=== PATIENT | female | born 1990 | race Caucasian/White ===

== ENCOUNTER 2016-11-27 17:07 | Emergency (ER) | payer OTHER ==
[2016-11-27 18:39] VITALS: TEMP 98.2; O2SAT 95
--- NOTE | 2016-11-27 18:59 | ED.PDOC ---
History of Present Illness - General Chief Complaint: Bite: Animal/Insect/Human Stated Complaint: Insect bite on R thigh Time Seen by Provider: 11/27/16 18:52 Source: patient Exam Limitations: no limitations - History of Present Illness Initial Comments: She stated she was bitten by unknown insect 4 days ago and noted bite getting more red and painful.Denies chronic medical problem,Td immunization less than 5 years.No fever/or chills. Timing/Duration: other - 4 days ago Severity: moderate Location: extremities - right thigh Improving Factors: nothing Worsening Factors: movement Associated Symptoms: change in skin texture Allergies/Adverse Reactions: Allergies NO KNOWN ALLERGY Allergy (Unverified 11/04/14 09:28) Home Medications: Ambulatory Orders Sulfa/Trimeth 800/160 (Ds) Tab [Bactrim DS Tab] 1 ea PO Q12HR #20 tab 11/27/16 Tramadol HCl 50 mg PO TID PRN #14 tab 11/27/16 Review of Systems - Review of Systems Constitutional: States: no symptoms reported EENTM: States: no symptoms reported Respiratory: States: no symptoms reported Cardiology: States: no symptoms reported Gastrointestinal/Abdominal: States: no symptoms reported Genitourinary: States: no symptoms reported Musculoskeletal: States: no symptoms reported Skin: States: see HPI Neurological: States: no symptoms reported Endocrine: States: no symptoms reported Past Medical History (General) - Patient Medical History Hx Seizures: No Hx Stroke: No Hx Dementia: No Hx Asthma: No Hx of COPD: No Hx Cardiac Disorders: No Hx Congestive Heart Failure: No Hx Pacemaker: No Hx Hypertension: No Hx Thyroid Disease: No Hx Diabetes: No Hx Gastroesophageal Reflux: No Hx Renal Disease: No Hx Cancer: No Hx of HIV: No Hx Hepatitis C: No Hx MRSA: No Surgical History: other - - Vaccination History Hx Tetanus, Diphtheria Vaccination: Yes Hx Influenza Vaccination: Yes Hx Pneumococcal Vaccination: No Immunizations Up to Date: Yes - Social History Hx Tobacco Use: No Hx Chewing Tobacco Use: No Hx Alcohol Use: Yes - occcas Hx Substance Use: No Hx Substance Use Treatment: No Hx Depression: No Feels Threatened In Home Enviroment: No Feels Threatened In a Relationship: No Hx Physical Abuse: No Hx Emotional Abuse: No Hx Suspected Abuse: No - Female History Patient is a Female of Child Bearing Age (10 -61 yrs old): - not breast feeding Hx Last Menstrual Period: 10/19/14 - 3 weeks post Patient : No Family Medical History - Family History Mother Living Status: Still Living Hx Family Hypertension: Yes Physical Exam - Physical Exam General Appearance: Alert, Comfortable, No apparent distress Eyes, Ears, Nose, Throat Exam: normal ENT inspection, TMs normal, pharynx normal Neck: non-tender, full range of motion, supple Cardiovascular/Chest: normal peripheral pulses, regular rate, rhythm, no edema Respiratory: chest non-tender, lungs clear, normal breath sounds, no respiratory distress Gastrointestinal/Abdominal: normal bowel sounds, non tender, soft Back Exam: normal inspection Extremity: normal range of motion, non-tender, no pedal edema, no calf tenderness Neurologic: alert, oriented x 3 Skin Exam: warm/dry, normal color Skin Problem Location: other - right thigh Skin Character: erythema, thickening Lymphatic: no adenopathy Progress - EKG/XRAY/CT CT Ordered: No CT Interpretation Call Back: No Departure - Departure Clinical Impression: Infected insect bite of hip or lower extremity Time of Disposition: 19:06 Disposition: Discharge to Home or Self Care Condition: Good Departure Forms: ED Discharge - Pt. Copy, Patient Portal Self Enrollment Instructions: DI for Insect Bites and Stings Referrals: Jarek Ballard III, MD [Primary Care Provider] - 1-2 Weeks Prescriptions: Sulfa/Trimeth 800/160 (Ds) Tab [Bactrim DS Tab] 1 ea PO Q12HR #20 tab Tramadol HCl 50 mg PO TID PRN #14 tab PRN Reason: Pain Home Medications: Ambulatory Orders Sulfa/Trimeth 800/160 (Ds) Tab [Bactrim DS Tab] 1 ea PO Q12HR #20 tab 11/27/16 Tramadol HCl 50 mg PO TID PRN #14 tab 11/27/16 Additional Instructions: FOLLOW UP WITH PRIMARY MD 11/29/2016 patient to call for appointment
[2016-11-27] MEDS ORDERED: SULFA/TRIMETH TAB 800/160 (ER) 1 EA TAB PO ONE (19:06)
[2016-11-27] MEDS ORDERED: HYDROcodone 10MG/APAP 325MG 1 EA TAB PO ONE (19:06)
[2016-11-27 19:31] VITALS: BP 109/78
== END 2016-11-27 19:31 | disposition home or self-care (01) ==
LOC: ER 17:07
DX: S70.361A Insect bite (nonvenomous), right thigh, initial encounter (principal); W57.XXXA Bitten or stung by nonvenomous insect and other nonvenomous arthropods, initial encounter